=== PATIENT | male | born 1995 | race Caucasian/White ===

== ENCOUNTER 2017-07-14 23:56 | Emergency (ER) | payer MEDICAID ==
[~2017-07-14] VITALS: Ht 193 cm; Wt 113.4 kg
[2017-07-15] MEDS ORDERED: IBUP600 PO (01:08)
== END 2017-07-15 01:21 | disposition home or self-care (01) ==
LOC: ER 23:56
DX: S66.126A Laceration of flexor muscle, fascia and tendon of right little finger at wrist and hand level, initial encounter (principal); S61.214A Laceration without foreign body of right ring finger without damage to nail, initial encounter; W26.0XXA Contact with knife, initial encounter
CPT/HCPCS: 12002; 99283

== ENCOUNTER 2024-11-21 03:29 | Emergency (ER) | payer OTHER ==
[~2024-11-21] VITALS: Ht 193 cm; Wt 145.2 kg
[~2024-11-21 03:29] MED LIST: IBUP600 PO
[2024-11-21 04:31] VITALS: BP 138/79
== END 2024-11-21 04:40 | disposition home or self-care (01) ==
LOC: ER 03:29
DX: F19.129 Other psychoactive substance abuse with intoxication, unspecified (principal)
CPT/HCPCS: 99282